=== PATIENT | male | born 1995 | race Two or more races ===

== ENCOUNTER 2023-05-04 16:05 | Emergency (ER) | payer MEDICAID, OTHER ==
[~2023-05-04] VITALS: Ht 157.5 cm; Wt 88.3 kg
[2023-05-04 16:55] LABS: Urine Bacteria FEW /hpf (None Seen); Urine Blood Negative /uL (Negative); Urine Clarity HAZY (Clear); Urine Color Yellow (Yellow); Urine Mucus FEW (None Seen); Urine Protein, UAD TRACE (Negative); Urine Specific Gravity 1.025 (1.001-1.035); Urine Urobilinogen Normal (Negative); Urine WBC 2 /hpf (0 - 3); Urine pH 5.5 (5.0-8.0)
[2023-05-04] MEDS ORDERED: ONDANSETRON ODT 4 MG TAB PO ONE (17:15)
[2023-05-04] MEDS ORDERED: ZOFR4T PO (18:27)
[2023-05-04 18:42] VITALS: BP 125/83; PULSE 86; RESP 14; TEMP 98; O2SAT 98
== END 2023-05-04 18:46 | disposition home or self-care (01) ==
LOC: ER 16:05
DX: A05.9 Bacterial foodborne intoxication, unspecified (principal)
CPT/HCPCS: 81001; 99283; Q0162

== ENCOUNTER 2023-05-11 23:39 | Emergency (ER) | payer MEDICAID ==
[~2023-05-11] VITALS: Ht 157.5 cm; Wt 85.4 kg
[~2023-05-11 23:39] MED LIST: ZOFR4T PO
[2023-05-12] MEDS: CLINDAMYCIN HCL 150 MG CAP PO ONE (01:03)
[2023-05-12] MEDS: HYDROcodone-ACET 5/325MG TAB PO ONE (01:03)
[2023-05-12] MEDS ORDERED: HYDR-4902 PO (01:29)
[2023-05-12] MEDS ORDERED: CLIN300C70 PO (01:29)
[2023-05-12 01:41] VITALS: BP 135/84; PULSE 75; RESP 18; TEMP 98.3; O2SAT 98
== END 2023-05-12 01:42 | disposition home or self-care (01) ==
LOC: ER 23:39
DX: K02.9 Dental caries, unspecified (principal); K04.7 Periapical abscess without sinus